=== PATIENT | male | born 1985 | race American Indian/Alaskan Native ===

== ENCOUNTER 2017-12-21 10:27 | Emergency (ER) | payer BC, OTHER ==
[2017-12-21 10:42] VITALS: BP 134/79
[2017-12-21] MEDS ORDERED: Ibuprofen 800 MG Tab PO ONE (10:51)
--- NOTE | 2017-12-21 10:51 | EDM.PDOC ---
ED HPI GENERAL MEDICAL PROBLEM - General Chief Complaint: Fever Stated Complaint: SICK, COUGH, ? FLU Time Seen by Provider: 12/21/17 10:40 Source of Information: Reports: Patient, RN, RN Notes Reviewed History Limitations: Reports: No Limitations - History of Present Illness INITIAL COMMENTS - FREE TEXT/NARRATIVE: Pt presents to the ER with c/o waking up this morning with body aches, fever, chills, cough, nausea, and vomiting. He states he is very cold and he does not feel well. Pt denies diarrhea or sob. Onset: Today, Sudden Lower Back Pain Score (Numeric/FACES): 8 - Related Data Allergies Allergy/AdvReac Type Severity Reaction Status Date / Time No Known Allergies Allergy Verified 09/12/15 08:54 Home Meds: Home Meds . [No Known Home Meds] 03/23/14 [History] Past Medical History - Past Health History Medical/Surgical History: Denies Medical/Surgical History Social & Family History - Tobacco Use Smoking Status *Q: Never Smoker Years of Tobacco use: 25 Packs/Tins Daily: 0.5 Second Hand Smoke Exposure: Yes - Alcohol Use Days Per Week of Alcohol Use: 0 - Recreational Drug Use Recreational Drug Use: No ED ROS GENERAL - Review of Systems Review Of Systems: ROS reveals no pertinent complaints other than HPI. ED EXAM, GENERAL - Physical Exam Exam: See Below Exam Limited By: No Limitations General Appearance: Alert, WD/WN, Mild Distress Eye Exam: Bilateral Eye: EOMI, Normal Inspection, PERRL Ears: Normal External Exam, Hearing Grossly Normal, Normal TMs. No: Normal Canal (erythematous canals bilaterally) Ear Exam: Bilateral Ear: TM normal, Erythema (canals bilaterally) Nose: Normal Inspection Throat/Mouth: Normal Inspection, Normal Lips, Normal Teeth, Normal Gums, Normal Oropharynx, Normal Voice, No Airway Compromise Head: Atraumatic, Normocephalic Neck: Normal Inspection, Supple, Non-Tender, Full Range of Motion Respiratory/Chest: No Respiratory Distress, Lungs Clear, Normal Breath Sounds, No Accessory Muscle Use, Chest Non-Tender, Other (cough, non productive) Cardiovascular: Normal Peripheral Pulses, Regular Rate, Rhythm, No Edema, No Gallop, No JVD, No Murmur, No Rub Peripheral Pulses: 2+: Radial (L), Radial (R) GI/Abdominal: Normal Bowel Sounds, Soft, Non-Tender, No Organomegaly, No Distention, No Abnormal Bruit, No Mass (Male) Exam: Deferred Rectal (Males) Exam: Deferred Back Exam: Normal Inspection, Decreased Range of Motion Extremities: Normal Inspection, Normal Range of Motion, No Pedal Edema, Normal Capillary Refill, Leg Pain (ache bilaterally) Neurological: Alert, Oriented, CN II-XII Intact, Normal Cognition, Normal Gait, Normal Reflexes, No Motor/Sensory Deficits Psychiatric: Normal Mood, Anxious Skin Exam: Warm, Dry, Intact, Normal Color, No Rash Lymphatic: No Adenopathy Course - Vital Signs Last Recorded V/S: Last Vital Signs Temp 100.2 F 12/21/17 10:41 Pulse 83 12/21/17 10:41 Resp 16 12/21/17 10:41 BP 134/79 12/21/17 10:41 Pulse Ox 100 12/21/17 10:41 - Orders/Labs/Meds Labs: Influenza A & B: NEGATIVE Meds: Medications Discontinued Medications Generic Name Dose Route Start Last Admin Trade Name Jp PRN Reason Stop Dose Admin Ibuprofen 800 mg 12/21/17 10:51 Motrin PO 12/21/17 10:52 ONETIME ONE Departure - Departure Time of Disposition: 11:11 Disposition: Home, Self-Care 01 Condition: Fair Clinical Impression: Upper respiratory infection, viral - Discharge Information Instructions: Fever, Adult, [id number], Influenza, Adult, [id number] Forms: ED Department Discharge Additional Instructions: RX: Tamiflu Tylenol or ibuprofen as directed for pain/fever Follow up with your primary care facility this week. Drink plenty of water rest
== END 2017-12-21 11:21 | disposition home or self-care (01) ==
LOC: DL.ED 10:27
DX: J06.9 Acute upper respiratory infection, unspecified (principal); Z77.22 Contact with and (suspected) exposure to environmental tobacco smoke (acute) (chronic)
CPT/HCPCS: 87804; 99282; A9270

== ENCOUNTER 2018-03-30 20:47 | Emergency (ER) | payer OTHER ==
[2018-03-31 07:29] LABS: SODIUM,NA 139 mmol/L (135-145)
[2018-03-31 07:30] LABS: ANION GAP 10.7; CHLORIDE,CL 109 mmol/L (101-111)
== END 2018-03-31 01:32 | disposition home or self-care (01) ==
LOC: DL.ED 20:47
DX: L03.115 Cellulitis of right lower limb (principal)
CPT/HCPCS: 36415; 73590-RT; 80053; 85025; 85379; 96365; 99283; J3370; J7050

== ENCOUNTER 2019-01-03 15:36 | Emergency (ER) | payer BC, OTHER ==
[2019-01-03] MEDS ORDERED: Acetaminophen/HYDROcodone 325-10 MG Tab PO ONE (15:56)
[2019-01-03] MEDS ORDERED: Silver Sulfadiazine 1% Crm 50 GM Tube TOP ONE (15:57)
[2019-01-03] MEDS ORDERED: Lidocaine 5% Oint 35.44 GM Tube TOP ONE (15:57)
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
[2019-01-03 17:30] VITALS: BP 109/71
== END 2019-01-03 17:45 | disposition home or self-care (01) ==
LOC: DL.ED 15:36
DX: T22.211A Burn of second degree of right forearm, initial encounter (principal); T23.201A Burn of second degree of right hand, unspecified site, initial encounter; R55 Syncope and collapse; F41.0 Panic disorder [episodic paroxysmal anxiety]; X02.0XXA Exposure to flames in controlled fire in building or structure, initial encounter
CPT/HCPCS: 16020; 93005; 99282; A9270

== ENCOUNTER 2025-06-18 16:02 | Emergency (ER) | payer BC ==
[2025-06-18 16:57] VITALS: BP 120/89; PULSE 80
== END 2025-06-18 16:39 | disposition home or self-care (01) ==
LOC: DL.ED 16:02
DX: S93.401A Sprain of unspecified ligament of right ankle, initial encounter (principal); X50.1XXA Overexertion from prolonged static or awkward postures, initial encounter; Y93.89 Activity, other specified
CPT/HCPCS: 73610-RT; 99283